=== PATIENT | male | born 1980 | race Caucasian/White ===

== ENCOUNTER 2019-07-26 20:56 | Emergency (ER) | payer OTHER ==
--- OUTSIDE RECORDS SUMMARY | 2019-07-26 20:58 | XMS REPORT ---
:1980 [facility] Address [address] [place] [address] Dr. Stubbs [address] [place] [id number] Care Team Providers Name Role Phone Unavailable Unavailable Unavailable Problems This patient has no known problems. Allergies, Adverse Reactions, Alerts This patient has no known allergies or adverse reactions. Medications This patient has no known medications.
[2019-07-26 23:06] LABS: Basophils % 0.7 % (0-1.3); Hematocrit 38.6 % (39.6-49.0); Lymphocytes % 22.7 % (15.3-44.8); MPV 7.3 fL (7.6-11.3); RBC Red Blood Cell Count 4.65 M/uL (4.33-5.43)
[2019-07-26 23:17] LABS: BUN Blood Urea Nitrogen 10 mg/dL (7-18); Bicarbonate 24 mmol/L (21-32); Glucose Level 109 mg/dL (74-106); Potassium 3.8 mmol/L (3.5-5.1); Sodium Level 138 mmol/L (136-145)
--- NOTE | 2019-07-26 23:49 | ER ---
Nurse's Notes [facility] Name: Delonte Zuñiga Age: 38 yrs Sex: Male : 1980 Arrival Date: 07/26/2019 Time: 21:03 Bed 14 Private MD: Diagnosis: Wound Check, Wound bleeding;Post-op Bleeding Presentation: 07/26 21:00 Presenting complaint: EMS states: patient complaint of uncontrolled bleeding from the rr5 sebaceous cyst operation at left neck area. procedure done [facility] in [facility]. when we arrived the site is spurting of blood direct pressure applied then the bleeding was controlled. patient looks pale BP 90/70mmHg NS IVF started rechecked 133/90 mmHg saturation 98% CBG 108mg/dL. 21:00 Transition of care: patient was not received from another setting of care. Onset of rr5 symptoms was 0. Risk Assessment: Do you want to hurt yourself or someone else? Patient reports no desire to harm self or others. Initial Sepsis Screen: Does the patient meet any 2 criteria? No. Patient's initial sepsis screen is negative. Does the patient have a suspected source of infection? No. Patient's initial sepsis screen is negative. Care prior to arrival: direct pressure to post operation site. 21:00 Method Of Arrival: EMS: [facility] rr5 21:00 Acuity: ABA 3 rr5 Historical: - Allergies: 21:15 LITHIUM DERIVITIVES; rr5 21:15 Depakote; rr5 - Home Meds: 21:15 quetiapine oral oral [Active]; risperidone oral oral [Active]; rr5 sulfamethoxazole-trimethoprim Oral [Active]; Trazodone Oral [Active]; Metformin Oral [Active]; Carbamazepine Oral [Active]; Lorazepam Oral [Active]; Tylenol #3 Oral [Active]; levothyroxine oral [Active]; atorvastatin oral oral [Active]; - PMHx: 21:15 varicose vein; sebaceous cyst; Hyperlipidemia; Bipolar disorder; Schizophrenia; rr5 Anxiety; Diabetes - NIDDM; Thyroid problem; - PSHx: 21:15 sebaceous cyst removal; right tibia and fibula surgery; pyloric stenosis; rr5 - Immunization history:: Adult Immunizations up to date. - Social history:: Smoking status: Patient/guardian denies using tobacco, the patient reports quitting approximately 1 years ago, Patient/guardian denies using alcohol, street drugs. - Ebola Screening: : Patient negative for fever greater than or equal to 101.5 degrees Fahrenheit, and additional compatible Ebola Virus Disease symptoms Patient denies exposure to infectious person Patient denies travel to an Ebola-affected area in the 21 days before illness onset. Screenin:37 Abuse screen: Denies threats or abuse. Denies injuries from another. Nutritional rr5 screening: No deficits noted. Tuberculosis screening: No symptoms or risk factors identified. Fall Risk None identified. Assessment: 21:00 General: Appears in no apparent distress. comfortable, Behavior is calm, cooperative, rr5 appropriate for age. Pain: Complains of pain in left neck area Pain does not radiate. Pain currently is 3 out of 10 on a pain scale. Quality of pain is described as aching, Pain began suddenly, Is intermittent. 21:00 Neuro: Level of Consciousness is awake, alert, obeys commands, Oriented to person, rr5 place, time, situation, Appropriate for age. Cardiovascular: Capillary refill < 3 seconds Patient's skin is warm and dry. Respiratory: Airway is patent Respiratory effort is even, unlabored, Respiratory pattern is regular, symmetrical. GI: No signs and/or symptoms were reported involving the gastrointestinal system. : EENT: No signs and/or symptoms were reported regarding the EENT system. Derm: Skin is pale, bleeding at left neck noted. post operation sebaceous cyst removal. Musculoskeletal: Circulation, motion, and sensation intact. Capillary refill < 3 seconds. 21:35 Reassessment: ED provider checked the wound, site still spurting with blood. direct rr5 pressure applied. 22:50 Reassessment: Patient appears in no apparent distress at this time. ED provider rr5 rechecked the site, bleeding noted continues direct pressure as ordered. 23:10 Reassessment: reassess by ed provider simple dressing applied. continue to observe for rr5 severe bleeding. 07/27 00:15 Reassessment: Patient appears in no apparent distress at this time. Patient is alert, rr5 oriented x 3, equal unlabored respirations, skin warm/dry/pink. rechecked by ED provider. wound dressing done. discharge instruction given and explained to patient and breeder service technician without complaints made. Patient states feeling better. Patient states symptoms have improved. Vital Signs: 07/26 21:00 BP 144 / 96; Pulse 82; Resp 19; Temp 98.4; Pulse Ox 99% ; Weight 120.2 kg; Height 5 ft. rr5 7 in. (170.18 cm); Pain 3/10; 22:00 BP 135 / 93; Pulse 89; Resp 17; Pulse Ox 96% ; rr5 23:00 BP 135 / 82; Pulse 80; Resp 16; Pulse Ox 98% on R/A; rr5 07/27 00:00 BP 124 / 85; Pulse 75; Resp 17; Pulse Ox 99% ; rr5 07/26 21:00 Body Mass Index 41.50 (120.20 kg, 170.18 cm) rr5 ED Course: 07/26 21:00 Maintain EMS IV. Dressing intact. Good blood return noted. Site clean \T\ dry. Gauge \T\ rr 5 site: G20 left AC. 21:03 Patient arrived in ED. rr5 21:08 Triage completed. rr5 21:15 Arm band placed on. rr5 21:15 Patient has correct armband on for positive identification. Placed in gown. Bed in low rr5 position. Call light in reach. Side rails up X2. 21:15 Pulse ox on. NIBP on. rr5 21:20 Julio C Otto MD is Attending Physician. kdr 21:37 Santana Rincon, SANDOVAL is Primary Nurse. rr5 07/27 00:00 Wound care: to sebaceous cyst removed post op located on left neck was cleaned with rr5 Hibiclens, dressed with 4X4s, Patient tolerated well. 00:15 No provider procedures requiring assistance completed. IV discontinued, intact, rr5 bleeding controlled, No redness/swelling at site. Pressure dressing applied. Administered Medications: No medications were administered Outcome: 07/26 23:48 Discharge ordered by . kdr 07/27 00:15 Discharged to home ambulatory, with family. rr5 Condition: stable Discharge instructions given to patient, family, Instructed on discharge instructions, follow up and referral plans. medication usage, Demonstrated understanding of instructions, follow-up care, medications. 00:16 Patient left the ED. rr5 Signatures: Julio C Otto MD MD kdr Santana Rincon, RN RN rr5
--- NOTE | 2019-07-26 23:50 | EDPHYS ---
Physician Documentation [facility] Name: Delonte Zuñiga Age: 38 yrs Sex: Male : 1980 Arrival Date: 07/26/2019 Time: 21:03 Bed 14 Private MD: ED Physician Julio C Otto HPI: 07/26 21:43 This 38 yrs old Male presents to ER via EMS with complaints of uncontrolled kdr bleeding from sebacious cyst post operation site. 21:43 Patient presents to ED for recheck of: The patient had a cyst removed a few days ago kdr and his mother was changing the dressing tonight when it started to bleed profusely. She was unable to get it stopped and EMS was called. The affected area is on the base of left lateral aspect of neck. 21:43 Progress: The patient reports no change in. The patient has not experienced similar kdr symptoms in the past. The patient has been recently seen by a physician: Dr. Matias. Historical: - Allergies: 21:15 LITHIUM DERIVITIVES; rr5 21:15 Depakote; rr5 - Home Meds: 21:15 quetiapine oral oral [Active]; risperidone oral oral [Active]; rr5 sulfamethoxazole-trimethoprim Oral [Active]; Trazodone Oral [Active]; Metformin Oral [Active]; Carbamazepine Oral [Active]; Lorazepam Oral [Active]; Tylenol #3 Oral [Active]; levothyroxine oral [Active]; atorvastatin oral oral [Active]; - PMHx: 21:15 varicose vein; sebaceous cyst; Hyperlipidemia; Bipolar disorder; Schizophrenia; rr5 Anxiety; Diabetes - NIDDM; Thyroid problem; - PSHx: 21:15 sebaceous cyst removal; right tibia and fibula surgery; pyloric stenosis; rr5 - Immunization history:: Adult Immunizations up to date. - Social history:: Smoking status: Patient/guardian denies using tobacco, the patient reports quitting approximately 1 years ago, Patient/guardian denies using alcohol, street drugs. - Ebola Screening: : Patient negative for fever greater than or equal to 101.5 degrees Fahrenheit, and additional compatible Ebola Virus Disease symptoms Patient denies exposure to infectious person Patient denies travel to an Ebola-affected area in the 21 days before illness onset. ROS: 21:43 Constitutional: Negative for fever, chills, and weight loss, Eyes: Negative for injury, kdr pain, redness, and discharge, Neck: Negative for injury, pain, and swelling, Cardiovascular: Negative for chest pain, palpitations, and edema, Respiratory: Negative for shortness of breath, cough, wheezing, and pleuritic chest pain, Abdomen/GI: Negative for abdominal pain, nausea, vomiting, diarrhea, and constipation, Back: Negative for injury and pain, : Negative for injury, bleeding, discharge, and swelling, MS/Extremity: Negative for injury and deformity, Skin: Negative for injury, rash, and discoloration, Neuro: Negative for headache, weakness, numbness, tingling, and seizure activity. Psych: Negative for depression, anxiety, suicide ideation, homicidal ideation, and hallucinations, Allergy/Immunology: Negative for hives, rash, and allergies, Endocrine: Negative for neck swelling, polydipsia, polyuria, polyphagia, and marked weight changes, Hematologic/Lymphatic: Negative for swollen nodes, abnormal bleeding, and unusual bruising. 21:43 Skin: Positive for There is a 2 x 3 cm wound to the base of the left neck. On initial evaluation, there are several 4x4 that are totally soaked with fresh BRB. Exam: 07/27 00:31 Constitutional: This is a well developed, well nourished patient who is awake, alert, kdr and in no acute distress. Skin: There is a 2 cm x 3 cm wound that is about 1 cm deep at the base of the left lateral neck. There are several arterial bleeders at the base that are bleeding briskly. They respond well to direct pressure but do not form a clot sufficient to tolerate a simple wet to dry repacking.. Vital Signs: 07/26 21:00 BP 144 / 96; Pulse 82; Resp 19; Temp 98.4; Pulse Ox 99% ; Weight 120.2 kg; Height 5 ft. rr5 7 in. (170.18 cm); Pain 3/10; 22:00 BP 135 / 93; Pulse 89; Resp 17; Pulse Ox 96% ; rr5 23:00 BP 135 / 82; Pulse 80; Resp 16; Pulse Ox 98% on R/A; rr5 07/27 00:00 BP 124 / 85; Pulse 75; Resp 17; Pulse Ox 99% ; rr5 07/26 21:00 Body Mass Index 41.50 (120.20 kg, 170.18 cm) rr5 Procedures: 00:31 Performed Wound packing. After appropriate evaluation of the wound and prior attempt to kdr achieve hemostasis with simple pressure, advanced wound care to include Surgicel insertion into the wound. This achieved hemostasis promptly and the a pressure dressing was applied. The patient and mother were instructed to leave the dressing in place until they were seen in the office by Dr. Hinson on Saturday. They voiced understanding of those instructions. The patient tolerated well. MDM: 07/26 23:48 Patient medically screened. kdr 07/27 00:40 Data reviewed: vital signs, nurses notes, lab test result(s), radiologic studies. kdr Counseling: I had a detailed discussion with the patient and/or guardian regarding: the historical points, exam findings, and any diagnostic results supporting the discharge/admit diagnosis, lab results, radiology results, the need for outpatient follow up. Physician consultation: Gaurang Hinson MD regarding consult, patient's condition, and will see patient in office, in 2-3 days, next week. 07/26 22: Order name: CBC with Diff kdr 07/26 22: Order name: Chem 7 kdr Administered Medications: No medications were administered Disposition: 07/26/19 23:48 Discharged to Home. Impression: Wound Check, Wound bleeding, Post-op Bleeding. - Condition is Stable. - Discharge Instructions: Delayed Wound Closure, Wound Care, Wound Packing. - Medication Reconciliation Form, Thank You Letter form. - Follow up: Private Physician; When: 2 - 3 days; Reason: If symptoms return, Further diagnostic work-up, Recheck today's complaints, Continuance of care, Re-evaluation by your physician. - Problem is new. - Symptoms have improved. - Notes: Do NOT change dresssing but follow-up with Dr. Hinson on Saturday Signatures: Dispatcher [employer] EDMS Julio C Otto MD MD kdr Santana Rincon RN RN rr5 Corrections: (The following items were deleted from the chart) 07/26 23:48 23:48 07/26/2019 23:48 Discharged to Home. Impression: Wound Check, Wound bleeding. kdr Condition is Stable. Forms are Medication Reconciliation Form, Thank You Letter, Antibiotic Education, Prescription Opioid Use. Follow up: Private Physician; When: 2 - 3 days; Reason: If symptoms return, Further diagnostic work-up, Recheck today's complaints, Continuance of care, Re-evaluation by your physician. Problem is new. Symptoms have improved. kdr 07/27 00:16 07/26 23:48 07/26/2019 23:48 Discharged to Home. Impression: Wound Check, Wound rr5 bleeding; Post-op Bleeding. Condition is Stable. Forms are Medication Reconciliation Form, Thank You Letter, Antibiotic Education, Prescription Opioid Use. Follow up: Private Physician; When: 2 - 3 days; Reason: If symptoms return, Further diagnostic work-up, Recheck today's complaints, Continuance of care, Re-evaluation by your physician. Problem is new. Symptoms have improved. kdr
[2019-07-27 01:22] VITALS: TEMP 98.4
[2019-07-27 01:24] VITALS: BP 135/82; O2SAT 98
== END 2019-07-27 00:16 | disposition home or self-care (01) ==
LOC: ER 20:56
DX: L76.21 Postprocedural hemorrhage of skin and subcutaneous tissue following a dermatologic procedure (principal); Z48.01 Encounter for change or removal of surgical wound dressing; E78.5 Hyperlipidemia, unspecified; E11.9 Type 2 diabetes mellitus without complications; F31.9 Bipolar disorder, unspecified; F20.9 Schizophrenia, unspecified; Z88.8 Allergy status to other drugs, medicaments and biological substances
CPT/HCPCS: 36415; 80048; 85025; 99284